=== PATIENT | male | born 1995 | race African-American/Black ===

== ENCOUNTER 2020-03-28 19:28 | Emergency (ER) | payer OTHER ==
[~2020-03-28] VITALS: Ht 175.3 cm; Wt 80.7 kg
[2020-03-28 19:32] VITALS: Ht 175.3 cm; Wt 80.7 kg
[2020-03-28 21:01] VITALS: BP 107/71
== END 2020-03-28 21:02 | disposition home or self-care (01) ==
LOC: ED 19:28
DX: S80.812A Abrasion, left lower leg, initial encounter (principal); S80.811A Abrasion, right lower leg, initial encounter; R51 Headache; M79.10 Myalgia, unspecified site; V43.52XA Car driver injured in collision with other type car in traffic accident, initial encounter; Y93.I9 Activity, other involving external motion; Y92.413 State road as the place of occurrence of the external cause; Y99.8 Other external cause status